=== PATIENT | female | born 1985 | race Caucasian/White ===

== ENCOUNTER → 2017-08-16 | Outpatient (CLI) | payer BC | END | disposition home or self-care (01) | LOC: KCIC US 07:51 | DX: K74.60 Unspecified cirrhosis of liver (principal); R10.9 Unspecified abdominal pain | CPT/HCPCS: 76700 ==

== ENCOUNTER → 2017-09-14 | Day surgery (SDC) | payer BC ==
[~2017-09-14] MED LIST: PROPOFOL 40 ML IV
[2017-09-14] MEDS: IV RINGERS,LACTATED 1000ML 1,000 ML IV (11:40)
== END ==
LOC: ENDOS 10:57
DX: R19.4 Change in bowel habit (principal); R10.84 Generalized abdominal pain; K64.8 Other hemorrhoids; K21.0 Gastro-esophageal reflux disease with esophagitis; K29.50 Unspecified chronic gastritis without bleeding; F41.9 Anxiety disorder, unspecified; F32.9 Major depressive disorder, single episode, unspecified; K74.60 Unspecified cirrhosis of liver; Z90.710 Acquired absence of both cervix and uterus
CPT/HCPCS: 43239; 88305; J2704

== ENCOUNTER 2018-08-29 15:27 | Emergency (ER) | payer SELFPAY ==
[~2018-08-29] VITALS: Ht 162.6 cm; Wt 73.5 kg
[~2018-08-29 15:27] MED LIST changes: +ASCO10002 PO; +CHOL100013 PO; +HYDR25CA75 PO; +MELO15TA23 PO; +MULT1TAB52 PO; +NALT50TA PO; -PROPOFOL 40 ML IV; +QUET100T4 PO; +SERT100T PO; +TRAZ300T2 PO
[2018-08-29 15:39] VITALS: BP 141/76
[2018-08-29] MEDS: HYDROcodone/APAP 5/325MG 1 TAB TABLET PO ONE (15:52)
--- NOTE | 2018-08-29 16:18 | RAD ---
EXAM: Sacrum and coccyx, 3 views. HISTORY: Fall. Pain. COMPARISON: None. FINDINGS: 3 views of the sacrum and coccyx are obtained. No displaced fracture is seen. The femoral heads are normal in configuration and seated appropriately. The sacroiliac joints are intact. IMPRESSION: No acute osseous finding. Electronically signed by: Flavia Green MD (08/29/2018 4:15 PM) [facility]
[2018-08-29] MEDS ORDERED: HYDR-3164 PO (16:24)
--- NOTE | 2018-08-29 16:24 | PHYS DOC ---
Past Medical History Past Medical History: Other Additional Past Medical Histor: mass on liver Past Surgical History: Other Additional Past Surgical Histo: LEEP procedure, colposcopy, liver biopsy,PART.HYSTERECTOMY Alcohol Use: Occasionally Drug Use: None Adult General Chief Complaint Chief Complaint: MECHANICAL FALL HPI HPI Patient is a 33 year old female who presents with pain to her tailbone after she slipped on ice today on her driveway. She denies any other injury. She denies LOC. She denies spontaneous loss of bowel or bladder, saddle numbness or foot drop. Review of Systems Review of Systems Constitutional: Denies fever or chills [] Eyes: Denies change in visual acuity, redness, or eye pain [] HENT: Denies nasal congestion or sore throat [] Respiratory: Denies cough or shortness of breath [] Cardiovascular: No additional information not addressed in HPI [] GI: Denies abdominal pain, nausea, vomiting, bloody stools or diarrhea [] : Denies dysuria or hematuria [] Musculoskeletal: See HPI Integument: Denies rash or skin lesions [] Neurologic: Denies headache, focal weakness or sensory changes [] Endocrine: Denies polyuria or polydipsia [] All other systems were reviewed and found to be within normal limits, except as documented in this note. Current Medications Current Medications Current Medications Medications (Trade) Dose Ordered Sig/Estelita Start Time Stop Time Status Last Admin Dose Admin Acetaminophen/ Hydrocodone Bitart (Lortab 5/325) 1 tab 1X ONCE 08/29/18 16:00 08/29/18 16:01 DC 08/29/18 15:52 1 TAB Allergies Allergies Allergies Coded Allergies Type Severity Reaction Last Updated Verified cephalexin Allergy Intermediate Hives 09/14/17 Yes Physical Exam Physical Exam Constitutional: Well developed, well nourished, no acute distress, non-toxic appearance. [] Cardiovascular:Heart rate regular rhythm, no murmur [] Lungs & Thorax: Bilateral breath sounds clear to auscultation [] Abdomen: Bowel sounds normal, soft, no tenderness, no masses, no pulsatile masses. [] Skin: Warm, dry, no erythema, no rash. [] Back: tenderness to her coccyx, no CVA tenderness. [] Extremities: No tenderness, no cyanosis, no clubbing, ROM intact, no edema. [] Neurologic: Alert and oriented X 3, normal motor function, normal sensory function, no focal deficits noted. [] Psychologic: Affect normal, judgement normal, mood normal. [] Current Patient Data Vital Signs EKG EKG [] Radiology/Procedures Radiology/Procedures [][facility] [address] [place] [address] IMAGING REPORT Signed PATIENT: KRYSTA CHAMBERLAIN ACCOUNT: [id number] : 1985 LOCATION: ER AGE: 33 SEX: F EXAM STATUS: PRE ER ORD. PHYSICIAN: COLLIN RABAGO APRN REASON: fell this morning on ice PROCEDURE: SACRUM & COCCYX 3V EXAM: Sacrum and coccyx, 3 views. HISTORY: Fall. Pain. COMPARISON: None. FINDINGS: 3 views of the sacrum and coccyx are obtained. No displaced fracture is seen. The femoral heads are normal in configuration and seated appropriately. The sacroiliac joints are intact. IMPRESSION: No acute osseous finding. Electronically signed by: Flavia Alex MD (08/29/2018 4:15 PM) [facility] DICTATED and SIGNED BY: FLAVIA ALEX MD DATE: 08/29/181613 Course & Med Decision Making Course & Med Decision Making Pertinent Labs and Imaging studies reviewed. (See chart for details) [] Dragon Disclaimer Dragon Disclaimer This electronic medical record was generated, in whole or in part, using a voice recognition dictation system. Departure Departure Impression: Primary Impression: Coccyx contusion Disposition: HOME, SELF-CARE Condition: STABLE Referrals: DMITRY FLORES MD (PCP) Patient Instructions: Bone Bruise Additional Instructions: Take the medication as directed. Do not drive or operate heavy machinery while taking pain medication. Follow-up with your primary care provider if not improving in one week or return to the emergency department if worsening. Scripts Hydrocodone/Apap 5-325 (NORCO 5-325 TABLET) 1 Each Tablet 1 TAB PO PRN Q6HRS PRN for PAIN, #14 TAB 0 Refills Prov: COLLIN RABAGO APRN 08/29/18 COLLIN RABAGO APRN Aug 29, 2018 16:24
== END 2018-08-29 16:29 | disposition home or self-care (01) ==
LOC: ER 15:27
DX: S30.0XXA Contusion of lower back and pelvis, initial encounter (principal); Z90.710 Acquired absence of both cervix and uterus; W19.XXXA Unspecified fall, initial encounter; Y93.89 Activity, other specified; Y92.89 Other specified places as the place of occurrence of the external cause; Y99.8 Other external cause status
CPT/HCPCS: 72220; 99283

== ENCOUNTER 2018-10-11 17:09 | Emergency (ER) | payer SELFPAY ==
[~2018-10-11] VITALS: Ht 162.6 cm; Wt 78.9 kg
[~2018-10-11 17:09] MED LIST changes: +HYDR-3164 PO
--- NOTE | 2018-10-11 18:43 | PHYS DOC ---
Past Medical History Past Medical History: Other Additional Past Medical Histor: mass on liver Past Surgical History: Other Additional Past Surgical Histo: LEEP procedure, colposcopy, liver biopsy, PART.HYSTERECTOMY Alcohol Use: Occasionally Drug Use: None Adult General Chief Complaint Chief Complaint: ANKLE PROBLEM [facility] HPI Patient is a 33 year old female presents to the ED complaining of left ankle injury times one day ago. Patient states that she was walking and accidentally rolled her left ankle. States she heard a crack. Describes the pain as sharp. Rates the pain as 7 out of 10. Denies head/neck injury, LOC, vision changes, nausea/vomiting, dizziness, weakness, symptoms prior to injury or inability to walk. Review of Systems Review of Systems Constitutional: Denies fever or chills [] Eyes: Denies change in visual acuity, redness, or eye pain [] HENT: Denies nasal congestion or sore throat [] Respiratory: Denies cough or shortness of breath [] Cardiovascular: No additional information not addressed in HPI [] GI: Denies abdominal pain, nausea, vomiting, bloody stools or diarrhea [] : Denies dysuria or hematuria [] Musculoskeletal: Complains of ankle and foot pain. Denies back pain. Integument: Denies rash or skin lesions [] Neurologic: Denies headache, focal weakness or sensory changes [] All other systems were reviewed and found to be within normal limits, except as documented in this note. Allergies Allergies Allergies Coded Allergies Type Severity Reaction Last Updated Verified cephalexin Allergy Intermediate Hives 09/14/17 Yes Physical Exam Physical Exam Constitutional: Well developed, well nourished, no acute distress, non-toxic appearance. [] HENT: Normocephalic, atraumatic Eyes: PERRLA, EOMI, conjunctiva normal, no discharge. [] Neck: Normal range of motion, no tenderness, supple, no stridor. [] Skin: Warm, dry, no erythema, no rash. [] Back: No tenderness, no CVA tenderness. [] Extremities: Mild left lateral ankle/foot tenderness/swelling. No overlying skin changes. Full range of motion. Neurovascular intact. no cyanosis, no clubbing, ROM intact, no edema. [] Neurologic: Alert and oriented X 3, normal motor function, normal sensory function, no focal deficits noted. [] Psychologic: Affect normal, judgement normal, mood normal. [] Current Patient Data Vital Signs Vital Signs Date Time Temp Pulse Resp B/P (MAP) Pulse Ox O2 Delivery O2 Flow Rate FiO2 10/11/18 20:03 98.6 110 16 153/69 (97) 95 Room Air 98.6 EKG EKG [] Radiology/Procedures Radiology/Procedures [] Course & Med Decision Making Course & Med Decision Making Pertinent Labs and Imaging studies reviewed. (See chart for details) []Discussed imaging results with attending physician, Dr. Gaspar, and he read x- ray. No fracture or acute injury. Patient's pain improved in ED. Patient able to ambulate without assistance. Discussed symptomatic treatment and follow-up with orthopedics if pain persists. Provided contact information/education. Discussed reasons to return to the ED. Patient understands and agrees with plan. Dragon Disclaimer Dragon Disclaimer This electronic medical record was generated, in whole or in part, using a voice recognition dictation system. Departure Departure Impression: Primary Impression: Ankle sprain Disposition: HOME, SELF-CARE Condition: IMPROVED Referrals: DMITRY FLORES MD (PCP) NORY HEART II, MD Patient Instructions: Ankle Sprain LIZZIE CARVALHO Oct 11, 2018 18:43
[2018-10-11 20:03] VITALS: BP 153/69
--- NOTE | 2018-10-12 07:58 | RAD ---
Left foot and ankle radiograph 10/11/2018 6:39 PM INDICATION: Rolled ankle COMPARISON: None available. TECHNIQUE: 3 views of the left foot and 3 views of the left ankle are provided. FINDINGS: There is no acute fracture or dislocation. Tibial plafond and talar dome are intact. The ankle mortise appears congruent. Bone mineralization is within normal limits. Joint spaces are maintained. Diffuse ankle soft tissue swelling noted. There is no soft tissue gas or osseous erosion. IMPRESSION: Soft tissue swelling about the ankle without definite acute fracture or dislocation. Electronically signed by: Chio Quinonez MD (10/12/2018 7:55 AM) [id number]
== END 2018-10-11 20:16 | disposition home or self-care (01) ==
LOC: ER 17:09
DX: S93.492A Sprain of other ligament of left ankle, initial encounter (principal); Z90.710 Acquired absence of both cervix and uterus; Z88.1 Allergy status to other antibiotic agents; X50.9XXA Other and unspecified overexertion or strenuous movements or postures, initial encounter; Y93.01 Activity, walking, marching and hiking; Y92.89 Other specified places as the place of occurrence of the external cause; Y99.8 Other external cause status
CPT/HCPCS: 73610; 73630; 99283

== ENCOUNTER 2019-05-27 11:23 | Day surgery (SDC) | payer SELFPAY ==
[~2019-05-27] VITALS: Ht 160 cm; Wt 84.0 kg
[~2019-05-27 11:23] MED LIST changes: +AZTREONAM IV Push 1 GM VIAL. IVP PRN; +BUPIVACAINE-EPI 0.25%-1:200000 MPF 30 ML VIAL. INJ ONE; +CLINDAMYCIN 900MG PREMIX 50 ML IV PRN; +CLONAZEPAM1 MG PO; +HYDROmorphone 2 MG/ML VIAL IV PRN; +IV RINGERS,LACTATED 1000ML 1,000 ML IV SCH; +LACT1CAP29 PO; +LIDOCAINE 1% PF 2 ML VIAL. ID PRN; +MORPHINE SULFATE 2 MG/ML VIAL. IV PRN; +ONDANSETRON PF 4 MG/2 ML VIAL. IV PRN; +PARO40TA61 PO; +PROCHLORPERAZINE 10 MG/2 ML VIAL. IV PRN; +fentaNYL PF VIAL 100 MCG/2 ML VIAL IV PRN
[2019-05-27] MEDS ORDERED: ONDANSETRON PF 4 MG/2 ML VIAL. ONE (12:40)
[2019-05-27] MEDS ORDERED: LIDOCAINE 2% PF 5 ML VIAL. ONE (12:40)
[2019-05-27] MEDS ORDERED: FAMOTIDINE 20 MG/2 ML VIAL ONE (12:40)
[2019-05-27] MEDS ORDERED: PROPOFOL 20 ML IV ONE (12:40)
[2019-05-27] MEDS ORDERED: DEXAMETHASONE SOD PHOS 4 MG/ML VIAL ONE (12:40)
[2019-05-27] MEDS ORDERED: fentaNYL PF VIAL 100 MCG/2 ML VIAL ONE (12:40)
[2019-05-27] MEDS ORDERED: ROCURONIUM 50 MG/5 ML VIAL. ONE (12:40)
[2019-05-27] MEDS ORDERED: KETAMINE HCL IN NACL, ISO-OSM 50 MG/5 ML SYRINGE ONE (12:40)
[2019-05-27] MEDS ORDERED: KETOROLAC 30 MG/ML VIAL. ONE ×2 (12:40→13:54)
[2019-05-27] MEDS ORDERED: MIDAZOLAM HCL/PF 2 MG/2 ML VIAL. ONE (12:41)
[2019-05-27] MEDS ORDERED: SURGICEL HEMOSTAT 4X8 EACH. ONE (13:02)
[2019-05-27] MEDS ORDERED: PHENYLEPHRINE in 0.9% NACL PF 1 MG/10 ML SYRINGE. IV ONE (13:45)
[2019-05-27] MEDS ORDERED: NEOSTIGMINE METHYLSULFATE 5 MG/5 ML SYRINGE. ONE (14:23)
[2019-05-27] MEDS ORDERED: GLYCOPYRROLATE 1 MG/5 ML VIAL. ONE (14:23)
[2019-05-27] MEDS ORDERED: SEVOFLURANE 31 TO 60 MINUTES. IH ONE (14:31)
--- NOTE | 2019-05-27 14:36 | PDOC ---
BRIEF OPERATIVE NOTE Date: May 27, 2019 Pre-Op Diagnosis Right Hydrosalpinx CPP Post-Op Diagnosis Same + ROV cyst Procedure Performed [facility] RSO Surgeon Dr. Sun Residential Director Jacket Changer: Celesselicia Anesthesia Type: General Blood Loss 5 ml Specimens Obtained Right fallopian tube and ROV with ROV cyst 10 cm size Findings ROV cyst 10 cm size with Right hydrosalpinx Complications none Operative Note see dictation MAGDALENA SUN Jr, MD May 27, 2019 14:36
--- NOTE | 2019-05-27 14:38 | DISCH ---
DISCHARGE INSTRUCTIONS Condition on Discharge Condition on Discharge: Stable Activity After Discharge Activity Instructions for Disc: Activity as tolerated Lifting Instructions after Dis: No heavy lifting Driving Instructions after Dis: Do not drive today Weight Bearing Status after Di: As tolerated Diet after Discharge Diet after Discharge: Regular Contacting the DRRuth after DC Call your doctor for: Concerns you may have Follow-Up Follow up with: Dr. Sun in 1 week MAGDALENA SUN Jr, MD May 27, 2019 14:38
[2019-05-27] MEDS: fentaNYL PF VIAL 100 MCG/2 ML VIAL IV PRN ×4 (14:54→15:27)
[2019-05-27] MEDS ORDERED: oxyCODONE/APAP 5/325 1 TAB TABLET PO ONE (15:15)
[2019-05-27] MEDS ORDERED: OXYC1TAB15 PO (15:44)
[2019-05-27 16:00] VITALS: BP 97/62
--- NOTE | 2019-05-27 16:01 | OP ---
DATE OF SURGERY: PREOPERATIVE DIAGNOSIS: Right hydrosalpinx, chronic pelvic pain. POSTOPERATIVE DIAGNOSES: 1. Right hydrosalpinx, chronic pelvic pain. 2. Right ovarian cyst. PROCEDURE: Laparoscopic RSO. SURGEON: Dr. Sun. NURSE QUALITY: Génesis. ANESTHESIA: GETA. ESTIMATED BLOOD LOSS: 5 mL. COMPLICATIONS: None. FINDINGS: Right ovarian cyst about 10 cm size. Right hydrosalpinx. SUMMARY: A 33-year-old female with right hydrosalpinx, chronic pelvic pain counseled on risks, benefits and expectations of laparoscopic RSO and voiced clear understanding to proceed. DESCRIPTION OF PROCEDURE: The patient was taken to surgery suite and placed in dorsal lithotomy position. She was prepped with Betadine solution for vaginal prep and ChloraPrep for abdominal prep. After adequate anesthesia, moist sponge stick was placed vaginally. We then turned our attention to the abdomen. Small transverse skin incision was made just below the umbilicus with a scalpel. A Veress needle was then placed through the infraumbilical incision site. The abdomen was allowed to insufflate up to 1-1/2 liters CO2 gas. The Veress needle was then removed, 5 mm trocar was placed. Scope was positioned. Intra-abdominal cavity was visualized. There was a large right ovarian cyst of at least 10 cm size and right hydrosalpinx. The remainder of the pelvic anatomy was normal. Two incisions made in the left lower quadrant, which one was 5 mm port and the other was an 11 mm port. With aid of Mara graspers and EnSeal device, the ovarian cyst was ruptured, in which a cystotomy was performed and the irrigated with suction irrigation was utilized to deflate the ovarian cyst, which was simple ovarian cyst. The EnSeal device was utilized to coagulate and dissect the right infundibulopelvic ligament from the pelvic sidewall. The pedicle was hemostatic. This right ovarian cyst, right ovary and right fallopian tube were removed with the aid of Endobag. The trocars were then removed under direct visualization. Abdomen was allowed to deflate as much as possible along with mechanical manipulation. The 11 mm port was closed at the fascial layer using 2-0 Vicryl suture in [id number] manner. The three skin incisions were reapproximated using 4-0 Vicryl suture in subcuticular manner. A 0.25% Marcaine with epinephrine was injected at each incision site. Moist sponge stick was removed. The patient tolerated the procedure well and was taken to recovery room in stable condition. Sponge and needle count correct x 3. MAGDALENA SUN MD DR: GABE/jovi JOB#: [id number] / [id number]
--- NOTE | 2019-05-31 18:06 | PATHOLOGY ---
[facility] Accession Number: [id number] . 01 Material submitted: . ovary - RIGHT TUBE AND OVARY. Modifiers: right . 01 Clinical history: . None provided . 02 Diagnosis: Fallopian tube and ovary, laparoscopic right salpingo-oophorectomy: - Cystic hydrosalpinx. - Salpingitis isthmica nodosum, focal. - Tubal serosal and ovarian capsular adhesions, focal. - Cystic follicles of ovary, several. (JPM:juan antonio; 05/31/2019) QMS 05/31/2019 1702 Local . 02 Comment: There is no evidence of malignancy. . 02 Electronically signed: . Keegan Deleon MD, Pathologist NPI- [id number] . 01 Gross description: . The specimen is received in formalin, labeled "Maral Valente, right tube and ovary". Received is a 27 g adnexal specimen consisting of a non-fimbriated fallopian tube measuring 4.8 cm in length by up to 0.7 cm in diameter which is adhesed to an 8.1 x 3.5 x 2.6 cm cystic ovary. Sectioning through the fallopian tube reveals a patent to dilated lumen. Sectioning through the ovary reveals multiple cystic structures ranging in size from 0.5 to 3.6 cm. The cyst beck of the larger two cysts are smooth to wrinkled in appearance with no grossly distinct papillary excrescences. Normal ovarian stroma is identified. The specimen is submitted representatively as follows: . A1 direct marketing representative sections of fallopian tube A2-A4 direct marketing representative sections of larger two cystic structures A5-A6 direct marketing representative sections of normal ovarian stroma with smaller cysts. (CAA; 05/29/2019) QAC/QAC 05/29/2019 0942 Local . 02 Pathologist provided ICD-10: N70.11, N73.6 . 02 CPT . 839690 Specimen Comment: A courtesy copy of this report has been sent to [phone] Specimen Comment: Report sent to Performed at: [address] [id number] MD Devonte Cramer MD Phone: [phone] Performed at: 02 [facility] [address] [place] [id number] MD Keegan Deleon MD Phone: [phone]
== END 2019-05-27 16:25 ==
LOC: SURG 11:23
PROVIDERS: ATTEND Obstetrics & Gynecology
DX: N70.11 Chronic salpingitis (principal); N83.01 Follicular cyst of right ovary; N70.91 Salpingitis, unspecified; F17.210 Nicotine dependence, cigarettes, uncomplicated; K21.9 Gastro-esophageal reflux disease without esophagitis; K74.60 Unspecified cirrhosis of liver; F41.9 Anxiety disorder, unspecified; F32.9 Major depressive disorder, single episode, unspecified; E66.9 Obesity, unspecified; Z68.32 Body mass index [BMI] 32.0-32.9, adult; Z90.710 Acquired absence of both cervix and uterus; Z72.89 Other problems related to lifestyle
CPT/HCPCS: 58661; A7015; J0780; J1100; J1885; J2001; J2250; J2370; J2405; J2704; J2710; J3010; J3490; J7030; J7120

== ENCOUNTER 2020-03-01 07:29 | Inpatient (IN) | payer SELFPAY ==
[~2020-03-01] VITALS: Ht 165.1 cm; Wt 68.0 kg
[~2020-03-01 07:29] MED LIST changes: +ASCO100019 PO; -ASCO10002 PO; -AZTREONAM IV Push 1 GM VIAL. IVP PRN; -BUPIVACAINE-EPI 0.25%-1:200000 MPF 30 ML VIAL. INJ ONE; -CLINDAMYCIN 900MG PREMIX 50 ML IV PRN; -HYDROmorphone 2 MG/ML VIAL IV PRN; -IV RINGERS,LACTATED 1000ML 1,000 ML IV SCH; -LIDOCAINE 1% PF 2 ML VIAL. ID PRN; -MORPHINE SULFATE 2 MG/ML VIAL. IV PRN; +MULT-445 PO; -MULT1TAB52 PO; -ONDANSETRON PF 4 MG/2 ML VIAL. IV PRN; +OXYC1TAB15 PO; -PROCHLORPERAZINE 10 MG/2 ML VIAL. IV PRN; -fentaNYL PF VIAL 100 MCG/2 ML VIAL IV PRN
[2020-03-01] MEDS ORDERED: IV NORMAL SALINE 1000ML BAG 1,000 ML IV ONE (08:00)
[2020-03-01 08:15] LABS: BASO # 0.1 x10^3/uL (0.0-0.2); BASO % 1 % (0-3); CALCIUM 7.7 mg/dL (8.5-10.1); CREATININE 0.8 mg/dL (0.6-1.0); EOS % 0 % (0-3); GFR 81.2; HEMATOCRIT 36.6 % (36.0-47.0); HEMOGLOBIN 12.6 g/dL (12.0-15.5); LYMPH # 1.9 x10^3/uL (1.0-4.8); LYMPH % 18 % (24-48); MEAN CORPUSCULAR HEMOGLOBIN 31 pg (25-35); MEAN CORPUSCULAR HGB CONC 35 g/dL (31-37); MEAN CORPUSCULAR VOLUME 90 fL (79-100); MONO # 0.5 x10^3/uL (0.0-1.1); MONO % 5 % (0-9); NEUT # 8.2 x10^3/uL (1.8-7.7); NEUT % 77 % (31-73); PLATELET COUNT 420 x10^3/uL (140-400); POTASSIUM 3.1 mmol/L (3.5-5.1); RED BLOOD COUNT 4.09 x10^6/uL (3.50-5.40); RED CELL DISTRIBUTION WIDTH 14.7 % (11.5-14.5); WHITE BLOOD COUNT 10.7 x10^3/uL (4.0-11.0)
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
[2020-03-01 08:24] LABS: ALBUMIN 3.9 g/dL (3.4-5.0); ALBUMIN/GLOBULIN RATIO 1.1 (1.0-1.7); TOTAL BILIRUBIN 0.4 mg/dL (0.2-1.0); TOTAL PROTEIN 7.4 g/dL (6.4-8.2)
[2020-03-01 08:25] LABS: PROTHROMBIN TIME PATIENT 13.8 SEC (11.7-14.0)
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
[2020-03-01] MEDS ORDERED: DIPH,PERTUSS(ACELL),TET VAC/PF 0.5 ML SYRINGE. VAX IM ONE (08:30)
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
[2020-03-01] MEDS ORDERED: MANNITOL 25% 12.5 G/50 ML VIAL. IV ONE ×2 (09:30→09:45)
[2020-03-01] MEDS ORDERED: fentaNYL PF VIAL 100 MCG/2 ML VIAL IVP ONE (09:45)
[2020-03-01] MEDS ORDERED: IV NORMAL SALINE 1000ML BAG 1,000 ML IV SCH (09:45)
[2020-03-01] MEDS ORDERED: ONDANSETRON PF 4 MG/2 ML VIAL. IV PRN (09:45)
[2020-03-01] MEDS ORDERED: ACETAMINOPHEN 500 MG TABLET PO ONE (09:45)
[2020-03-01 09:52] LABS: PREG TEST PT QUAL NEGATIVE (NEG)
[2020-03-01] MEDS ORDERED: AMPICILLIN/SULBACTAM 3 GM in IV NORMAL SALINE 100ML 100 ML IV ONE (10:00)
[2020-03-01] MEDS: MORPHINE SULFATE 2 MG/ML VIAL. IV PRN ×2 (11:36→15:03)
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
[2020-03-01] MEDS ORDERED: ALPRAZolam 0.5 MG TABLET PO ONE (15:00)
[2020-03-01 16:30] VITALS: BP 142/72
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
== END 2020-03-01 16:57 | disposition short-term general hospital (02) | DRG 157 ==
LOC: EEVIPCON 07:29 → ER 07:29 → ED HOLD 09:44
PROVIDERS: ADMIT Internal Medicine; ATTEND Internal Medicine
DX: S02.401A Maxillary fracture, unspecified side, initial encounter for closed fracture (principal); S06.5X9A Traumatic subdural hemorrhage with loss of consciousness of unspecified duration, initial encounter; S02.32XA Fracture of orbital floor, left side, initial encounter for closed fracture; E87.6 Hypokalemia; S02.2XXA Fracture of nasal bones, initial encounter for closed fracture; F10.129 Alcohol abuse with intoxication, unspecified; K70.30 Alcoholic cirrhosis of liver without ascites; Y04.0XXA Assault by unarmed brawl or fight, initial encounter; Z87.891 Personal history of nicotine dependence; Z90.710 Acquired absence of both cervix and uterus; Z88.8 Allergy status to other drugs, medicaments and biological substances; Z79.899 Other long term (current) drug therapy; Z90.721 Acquired absence of ovaries, unilateral; Y93.89 Activity, other specified; Y92.89 Other specified places as the place of occurrence of the external cause; Y99.8 Other external cause status
CPT/HCPCS: 36415; 70450; 70486; 71045; 72125; 80053; 81025; 84703; 85025; 85610; 85730; 90471; 90715; 96361; 96365; 96375; 99291; 99292; G0480; J0295; J2150; J2270; J2405; J3010; J7030